=== PATIENT | female | born 1990 | race Caucasian/White ===

== ENCOUNTER 2016-05-12 10:42 | Emergency (ER) | payer OTHER ==
[2016-05-12] MEDS ORDERED: SODIUM CHLORIDE 0.9% 1,000 ML IV ONE ×2 (11:25→14:19)
[2016-05-12] MEDS ORDERED: PROMETHAZINE INJ 12.5 MG in SODIUM CHLORIDE 0.9% 50 ML IV STA (14:19)
[2016-05-12] MEDS ORDERED: HYDROmorphone 1 MG/ML SYRINGE IVP STA (14:20)
[2016-05-12] MEDS ORDERED: HYDROmorphone 1 MG/ML SYRINGE ONE (14:25)
[2016-05-12] MEDS ORDERED: PROMETHAZINE 25 MG/1 ML VIAL ONE (14:25)
[2016-05-12] MEDS ORDERED: IBUPROFEN 800 MG TABLET PO STA (14:34)
[2016-05-12] MEDS ORDERED: IBUPROFEN 800 MG TABLET PO ONE (14:38)
== END 2016-05-12 15:33 | disposition home or self-care (01) ==
DX: K52.9 Noninfective gastroenteritis and colitis, unspecified (principal); E86.0 Dehydration
CPT/HCPCS: 36415; 80053; 81001; 81025; 83690; 85025; 96365; 99283; 99284; A9270

== ENCOUNTER 2018-06-26 10:15 | Emergency (ER) | payer OTHER ==
--- NOTE | 2018-06-26 11:48 | XRAY Report ---
Reason: cough Procedure Date: 06/26/2018 Accession Number: [id number] / [id number] Procedure: XR - Chest 2 View X-Ray CPT Code: 60183 FULL RESULT: EXAM: CHEST RADIOGRAPHY EXAM DATE: 06/26/2018 11:40 AM. CLINICAL HISTORY: Productive cough for 4 days; postnasal drip for 3 weeks. COMPARISON: None. TECHNIQUE: 2 views. FINDINGS: Lungs/Pleura: No focal opacities evident. No pleural effusion. No pneumothorax. Normal volumes. Mediastinum: Heart and mediastinal contours are unremarkable. Other: None. IMPRESSION: No radiographic evidence of acute cardiopulmonary disease. RADIA
[2018-06-26] MEDS ORDERED: NAPROXEN 250 MG TABLET PO STA (12:03)
[2018-06-26] MEDS ORDERED: ACETAMINOPHEN 500 MG TABLET PO STA (12:03)
--- NOTE | 2018-06-26 12:05 | ED Physician Documentation ---
PD HPI URI - Stated complaint Stated Complaint: CHEST PX W/COUGH MIGRAINE - Chief complaint Chief Complaint: Heent - Additional information Additional information: 27-year-old female presents the emergency department with body aches, fever, c ough, sore throat and generally feeling very unwell. Symptoms slightly improved with Tylenol Motrin. No other associated symptoms. Positive for sick contacts. No other associated symptoms Review of Systems Constitutional: reports: Fever, Chills, Myalgias, Fatigue Eyes: denies: Loss of vision, Discharge Ears: denies: Loss of hearing, Ear pain Nose: reports: Rhinorrhea / runny nose, Congestion Throat: reports: Sore throat Cardiac: denies: Chest pain / pressure Respiratory: reports: Cough : denies: Dysuria Skin: denies: Rash Musculoskeletal: denies: Neck pain PD PAST MEDICAL HISTORY - Past Medical History Cardiovascular: None Respiratory: None GI: None - Past Surgical History Past Surgical History: No - Present Medications Home Medications: Ambulatory Orders Medication Instructions Recorded Confirmed Sertraline [Zoloft] 50 mg PO DAILY 06/26/18 06/26/18 - Allergies Allergies/Adverse Reactions: Allergies Allergy/AdvReac Type Severity Reaction Status Date / Time No Known Drug Allergies Allergy Verified 06/26/18 10:21 - Social History Does the pt smoke?: No Smoking Status: Never smoker Does the pt drink ETOH?: No Does the pt have substance abuse?: No - Immunizations Immunizations are current?: Yes - POLST Patient has POLST: No PD ED PE NORMAL - General General: Alert and oriented X 3, No acute distress - HEENT HEENT: Atraumatic, PERRL, EOMI, Ears normal - Neck Neck: Supple, no meningeal sign - Cardiac Cardiac: RRR (Tachycardia, most likely secondary to the viral process), Strong equal pulses - Respiratory Respiratory: No respiratory distress, Clear bilaterally - Derm Derm: Normal color - Extremities Extremities: No deformity, Normal ROM s pain - Neuro Neuro: Alert and oriented X 3, Normal speech - Psych Psych: Normal affect Results - Vitals Vitals: Vital Signs - 24 hr 06/26/18 06/26/18 10:19 12:09 Temperature 36.4 C L 36.9 C Heart Rate 107 H 101 H Respiratory 14 18 Rate Blood Pressure 129/79 125/77 O2 Saturation 97 96 Oxygen O2 Source Room air - Labs Labs: Laboratory Tests 06/26/18 10:25 Influenza A (Rapid) POSITIVE H Influenza B (Rapid) Negative - Rads (name of study) CXR Radiology: Final report received PD MEDICAL DECISION MAKING - ED course ED course: The patient has acute influenza, the patient appears to be several days out and has no evidence of a superimposed bacterial infection. Presently, the patient appears appropriate for discharge and ongoing outpatient management. I discussed warning signs and recommended returning for any worsening or any concerns Departure - Departure Disposition: 01 Home, Self Care Clinical Impression: Influenza Condition: Good Instructions: ED Flu Follow-Up: GALI CARRERA MD [Primary Care Provider] - Within 1 week Comments: Please return to the emergency department for worsening symptoms or any concerns Discharge Date/Time: 06/26/18 12:15
[2018-06-26 12:10] VITALS: BP 125/77
== END 2018-06-26 12:15 | disposition home or self-care (01) ==
LOC: ED 10:15
DX: J11.1 Influenza due to unidentified influenza virus with other respiratory manifestations (principal)
CPT/HCPCS: 71046; 87275; 87276; 99282; 99283; A9270